=== PATIENT | female | born 1995 | race Caucasian/White ===

== ENCOUNTER 2024-06-05 08:07 | Outpatient (AMB) | payer OTHER, SELFPAY ==
--- NOTE | 2024-06-05 08:09 | AM.OFFWIN_ITS ---
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 Intake Note: pt is here for pink eye in both eyes Patient Tobacco Use Status: Never used Tobacco Allergies No Known Allergies Allergy (Verified 06/05/24 08:10) Medication List - Last Reconciled 06/05/24 by Sofie Martinez NP desog-e.estradiol/e.estradiol 0.15-0.02 mgx21 /0.01 mg x 5 (Kariva (28)) 1 tab PO DAILY levothyroxine 112 mcg PO DAILY lidocaine HCl 2% (Lidocaine Viscous) PO ofloxacin 0.3% 1 to 2 drops into the eye(s) 4 times a day; 5 days Do you need a note to return to daycare/school/sports/work: Yes 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 While every effort has been made to ensure accuracy, range aid errors may have been included. The patient is a 28 year old female who presents to the clinic today with 2 day history itch and erythema to bilateral eyes. 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 She has since sore in her contacts out. She has had copious amounts of discharge from her eyes, they feel swollen, and irritated, and itchy. She has no difficulty seeing. She is able to wear glasses. No current fever, chills, cough, shortness of breath. [facility] Social History Patient Tobacco Use Status: Never used Tobacco Review of Systems Const All systems reviewed & are unremarkable except as noted in HPI and below Physical Exam Vital Signs: Last Vital Signs Temp 98.4 F 06/05/24 08:13 Pulse 95 06/05/24 08:13 BP 122/80 06/05/24 08:13 Pulse Ox 96 06/05/24 08:13 BMI result Body Mass Index 24.9 Const General: cooperative, healthy appearing, comfortable, no acute distress and alert Orientation/consciousness: patient oriented x3 Limitations: no limitations HEENT Head: Yes normal to inspection and Yes normocephalic Ears: hearing grossly normal bilaterally General nose exam: Normal external nose present Face and sinus: Yes normal facial exam and Yes sinuses nontender Eyes Eyelids: Yes eyelid abnormality (mild edema bilaterally) Conjunctivae: conjunctival abnormal bilateral conjunctival injection (bilateral) Pupils: Equal, round and reactive pupils present Direct Ophthalmoscopy: normal light reflex Neck Neck: Yes normal visual inspection, Yes full ROM and Yes no lymphadenopathy Neuro General: patient oriented x3 Cranial nerves: Yes Equal, round and reactive pupils present Extrem General: Yes normal to inspection, Yes full ROM, Yes capillary refill normal and Yes normal exam except as noted Psych Appearance: grossly normal Mental Status: mental status grossly normal Speech and movement: Normal speech and movement present Affect: normal affect Assessment & Plan Assessment & Plan (1) Conjunctivitis: Code(s): H10.9 - Unspecified conjunctivitis Qualifiers: Conjunctivitis type: acute Acute conjunctivitis type: bacterial Laterality: bilateral Qualified Code(s): H10.33 - Unspecified acute conjunctivitis, bilateral Plan: History and physical examination consistent with bacterial conjunctivitis. Given that patient has a contact wearer ofloxacin eyedrops sent to requested pharmacy. Advised patient to throw away any contacts recently used, any eye makeup. Advised to wear glasses until complete resolution of symptoms. Advised Ophthalmology with any vision changes. Plan See above for full details and plan. Medications: New ofloxacin 0.3% 1 to 2 drops into the eye(s) 4 times a day; 5 days 5 mL 0RF Coding Level of Care Code New Pt Level 3 (04258) Diagnoses Acute bacterial conjunctivitis of both eyes H10.33 Conjunctivitis type: acute Acute conjunctivitis type: bacterial Laterality: bilateral
[2024-06-05 08:13] VITALS: BP 122/80; PULSE 95; TEMP 36.9; O2SAT 96; BMI 24.9
== END 2024-06-05 08:31 | disposition home or self-care (01) ==
PROVIDERS: PCP Nurse Practitioner Family; Visit Provider Registered Nurse
DX: H10.33 Unspecified acute conjunctivitis, bilateral (principal)
CPT/HCPCS: 99203